=== PATIENT | male | born 2000 | race Caucasian/White ===

== ENCOUNTER 2023-09-26 22:24 | Emergency (ER) | payer OTHER ==
[~2023-09-26] VITALS: Ht 185.4 cm; Wt 61.9 kg
[2023-09-26] MEDS ORDERED: AMOX TR-K CLV1 EAC1 PO (22:50)
[2023-09-26 23:23] VITALS: BP 120/88
== END 2023-09-26 23:24 | disposition home or self-care (01) ==
LOC: ED 22:24
DX: S60.412A Abrasion of right middle finger, initial encounter (principal); W26.0XXA Contact with knife, initial encounter; L01.00 Impetigo, unspecified; Z23 Encounter for immunization
CPT/HCPCS: 90715